=== PATIENT | female | born 1955 | race Caucasian/White ===

== ENCOUNTER 2022-05-06 15:14 | Emergency (ER) | payer SELFPAY ==
[~2022-05-06] VITALS: Ht 182.9 cm; Wt 99.8 kg
[~2022-05-06 15:14] MED LIST: ACETAMINOP160 MG/52 GT; CEFTIN250 MG PO; COUMADIN5 MG; DIFLUCAN150 MG PO; FLAGYL500 MG PO; HUMULIN N100 UNIT/1 SUB-Q; LANSOPRAZOLE30 MG GT; LEVAQUIN250 MG/10 GT; LEVOTHYROXINE100 MCG GT; LOVENOX100 MG SUB-Q; METFORMIN HCL500 MG PO; METRONIDAZOLE GT; OXYCODONE H5 MG/5 ML GT; PROMETHAZINE-COD5 ML PO
[2022-05-06] MEDS ORDERED: PREDNISONE20 MG PO (17:45)
[2022-05-06] MEDS ORDERED: CYCLOBENZAPRINE10 MG PO (17:45)
== END 2022-05-06 17:54 | disposition home or self-care (01) ==
LOC: ED 15:14
DX: M54.41 Lumbago with sciatica, right side (principal); M54.42 Lumbago with sciatica, left side; E11.9 Type 2 diabetes mellitus without complications; E78.00 Pure hypercholesterolemia, unspecified; I10 Essential (primary) hypertension; Z88.8 Allergy status to other drugs, medicaments and biological substances; Z88.5 Allergy status to narcotic agent; Z88.0 Allergy status to penicillin; Z91.040 Latex allergy status; Z79.899 Other long term (current) drug therapy; Z79.84 Long term (current) use of oral hypoglycemic drugs; Z79.01 Long term (current) use of anticoagulants
CPT/HCPCS: 99283; J7512